=== PATIENT | female | born 1950 | race Asian ===

== ENCOUNTER 2025-07-02 19:30 | Emergency (ER) | payer MEDICARE, OTHER ==
[~2025-07-02] VITALS: Ht 149.9 cm; Wt 61.3 kg
[~2025-07-02 19:30] MED LIST: AMOX-457 PO; DICY-1 PO; DIPH-1130 PO; METO25 PO
[2025-07-02 19:49] VITALS: TEMP 99
[2025-07-02 22:42] VITALS: BP 151/72; PULSE 74; RESP 18; O2SAT 98
[2025-07-02] MEDS: ACETAMINOPHEN 500 MG TABLET PO ONE (23:02)
[2025-07-02] MEDS: IBUPROFEN 400 MG TABLET PO ONE (23:02)
== END 2025-07-02 23:18 | disposition home or self-care (01) ==
LOC: EMS 19:30
DX: S82.001A Unspecified fracture of right patella, initial encounter for closed fracture (principal); I10 Essential (primary) hypertension; Z98.890 Other specified postprocedural states; Z79.899 Other long term (current) drug therapy; W01.0XXA Fall on same level from slipping, tripping and stumbling without subsequent striking against object, initial encounter; Y93.89 Activity, other specified; Y92.89 Other specified places as the place of occurrence of the external cause; Y99.8 Other external cause status
CPT/HCPCS: 29505; 99283